=== PATIENT | female | born 1995 | race Hispanic/Latino ===

== ENCOUNTER 2018-05-16 05:50 | Day surgery (SDC) | payer OTHER, MEDICAID ==
[2018-05-15 16:33] LABS: BASOPHILS % (AUTO) 0.5 % (0.0-5.0); HEMATOCRIT 37.2 % (36-48); LYMPHOCYTES % (AUTO) 19.8 % (21.0-51.0); MEAN CORPUSCULAR HGB CONC 34.1 g/dL (32.0-36.0); MEAN CORPUSCULAR VOLUME 90.8 fL (79-99); MONOCYTES % (AUTO) 3.7 % (3.0-13.0); PLATELET COUNT (AUTO) 222 K/uL (130-400); RED BLOOD CELL COUNT(AUTO) 4.09 MIL/uL (4.00-5.50); RED CELL DISTRIBUTION WIDTH 12.2 % (11.0-15.5); WHITE BLOOD COUNT (AUTO) 9.5 K/uL (4.8-10.8)
[2018-05-15 16:45] VITALS: BP 108/79
[~2018-05-16] VITALS: Ht 152.4 cm; Wt 56.6 kg
[2018-05-16] VITALS (20 sets, daily range): BP systolic 111–156; BP diastolic 52–92
[2018-05-16] MEDS ORDERED: LACTATED RINGERS 1000ML 1,000 ML IV SCH (08:00)
[2018-05-16] MEDS ORDERED: LIDOCAINE PF 2% 5ML ABBOJECT ONE (08:31)
[2018-05-16] MEDS ORDERED: MIDAZOLAM HCL 1 MG/ML 2ML VIAL ONE (08:31)
[2018-05-16] MEDS ORDERED: GLYCOPYRROLATE 1 MG/5 ML SYRINGE ONE (08:31)
[2018-05-16] MEDS ORDERED: DEXAMETHASONE SOD PHOSPHATE 10MG/ML 1ML VIAL ONE (08:31)
[2018-05-16] MEDS ORDERED: SUCCINYLCHOLINE 200MG/10ML SYR ONE (08:31)
[2018-05-16] MEDS ORDERED: PROPOFOL 10 MG/ML 20ML VIAL IV ONE (08:32)
[2018-05-16] MEDS ORDERED: ROCURONIUM 10MG/1ML SYR 10 MG/ML ML ONE (08:32)
[2018-05-16] MEDS ORDERED: ONDANSETRON HCL 4 MG/2 ML VIAL ONE ×2 (08:32→11:50)
[2018-05-16] MEDS ORDERED: FENTANYL CITRATE PF 50 MCG/1 ML 2ML VIAL ONE ×2 (08:32→08:54)
[2018-05-16] MEDS ORDERED: NEOSTIGMINE 5MG/5ML SYR IV ONE (08:32)
--- NOTE | 2018-05-16 11:30 | NUR ---
nausea patient c/o nausea, alcohol pad provided, cool compress to forehead provided.
--- NOTE | 2018-05-16 11:50 | NUR ---
nausea continues with nausea
--- NOTE | 2018-05-16 12:03 | NUR ---
Zofran anti emetic medication given IV
--- NOTE | 2018-05-16 12:30 | NUR ---
nausea relief patient stated that her nausea is less, ambulated to bathroom, urinated, has small amount of vaginal bleeding on [place]ele pad.
--- NOTE | 2018-05-16 12:50 | NUR ---
IV fluids discontinued
== END 2018-05-16 13:00 | disposition home or self-care (01) ==
LOC: DAH 05:50
PROVIDERS: ATTEND Obstetrics & Gynecology
DX: Z30.2 Encounter for sterilization (principal); N80.0 Endometriosis of uterus; Z83.3 Family history of diabetes mellitus
CPT/HCPCS: 36415; 58662; 58670; 84703; 85025; 86850; 86900; 86901; A4215; A4351; A4452; A4606; A4930; C1769 ×2; J0330; J1100; J2001; J2250; J2405 ×2; J2704; J2710; J3010 ×2; J3490; J7120 ×2